=== PATIENT | female | born 2000 | race African-American/Black ===

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

== ENCOUNTER 2019-01-22 12:51 | Emergency (ER) | payer OTHER, SELFPAY ==
--- NOTE | 2019-01-22 13:25 | RAD ---
XR Foot Lt 3 View STANDARD HISTORY: Injury, left foot pain FINDINGS: No fracture or dislocation is identified.
== END 2019-01-22 13:40 | disposition home or self-care (01) ==
LOC: NAV ERS 12:51
DX: M79.672 Pain in left foot (principal)

== ENCOUNTER 2021-01-07 17:04 | Emergency (ER) | payer SELFPAY | END 2021-01-07 18:26 | disposition home or self-care (01) | LOC: NAV ERS 17:04 | DX: L85.3 Xerosis cutis (principal) | CPT/HCPCS: 99282 ==